=== PATIENT | female | born 1960 | race Caucasian/White ===

== ENCOUNTER → 2018-07-29 | Outpatient (CLI) | payer OTHER ==
--- NOTE | 2018-07-30 15:27 | SLEEP ---
DATE OF STUDY: 07/29/2018 REFERRING PHYSICIAN: Dr. Uma Alvares. PRIMARY CARE PHYSICIAN: THIAGO Wade. The patient is a 57-year-old who weighs 210 pounds with a BMI of 36. The patient underwent a diagnostic sleep study at [facility]. During the night study, the patient spent 417 minutes in bed and slept for 360 minutes with a sleep efficiency of 86%. Sleep latency was 48 minutes with a REM latency of 280 minutes. Overall, sleep architecture showed normal stage 1 sleep, increased stage 2 sleep, normal N3 sleep and reduced REM sleep. During the night study, the patient had 6 apneas and 124 hypopneas. The patient's apneas were all obstructive. The patient's apnea-hypopnea index was 22 per hour with a supine index of 35 per hour, and a REM index of 101 per hour. The patient's sleep apnea was worse during REM sleep. EKG monitoring revealed a mean heart rate of 76 beats per minute, no sustained arrhythmias observed. Nocturnal oximetry study revealed a mean oxygen saturation of 92%, the lowest of 73%. A 78% of time oxygen saturation remained between 80% and 89%. PLMS were seen at index of 27 per hour and 4 per hour caused EEG arousals. Since REM sleep came very late in the night of study, there was not enough time to initiate CPAP. The patient's sleep apnea was worse during REM sleep. IMPRESSION: 1. Moderate sleep apnea-hypopnea syndrome with worsening during REM sleep. Total apnea-hypopnea index of 22 per hour with a REM apnea-hypopnea index of 101 per hour. The patient's sleep apnea was predominantly during REM sleep. 2. Nocturnal hypoxia secondary to obstructive sleep apnea and was worse during REM sleep. 3. Moderate periodic limb movements of sleep. RECOMMENDATIONS: 1. The patient should return to the sleep lab for CPAP titration study. 2. Once optimum CPAP pressure is achieved, then follow up in 4-6 weeks to assess compliance with CPAP and to document clinical improvement. 3. Weight loss is strongly advised. 4. Avoid LO[employer]ING [employer] depressants. 5. Cautioned regarding driving until symptoms of sleep apnea have resolved with the use of CPAP. STELLA LADD MD DR: [place]/bryanna JOB#: [id number] / [id number] UMA Stewart MD
== END | disposition home or self-care (01) ==
LOC: SLPLAB 18:52
PROVIDERS: ATTEND Internal Medicine Pulmonary Disease
DX: G47.33 Obstructive sleep apnea (adult) (pediatric) (principal)
CPT/HCPCS: 95810

== ENCOUNTER → 2018-09-16 | Outpatient (CLI) | payer OTHER ==
--- NOTE | 2018-09-17 19:14 | SLEEP ---
DATE OF STUDY: 09/17/2018 OBJECTIVE: The patient is a 58-year-old female previously studied on 07/29/2018 showing obstructive sleep apnea and hypopnea with an apnea-hypopnea index of 22 events per hour. The patient is returning for a CPAP titration. INTERPRETATION: Sleep architecture is characterized by sleep efficiency of 90% across the 7.5 hours of recording time. Stage volumes are appropriate for age. Sleep onset latency is 6.5 minutes. The patient is started on treatment. The overall apnea-hypopnea index was 54 events per hour of sleep, but on 18 cm of CPAP, the apnea/hypopnea index falls to 1.2 events per hour of sleep. The minimum oxygen saturation is 75%. Periodic limb movements occur at the rate of 5 per hour, 9 per hour associated with arousal. No cardiac arrhythmias are seen. IMPRESSION: Abnormal polysomnogram showing successful treatment of sleep apnea on a CPAP setting of 18 cm using a ResMed full face mask Quattro, small size. RECOMMENDATIONS: 1. The patient should be started on the above CPAP setting. 2. She should avoid sedatives and alcohol and pursue weight loss. Thank you for letting us help with the patient's care. TWILA CARLSON MD DR: [place]/bryanna JOB#: [id number] / [id number] STELLA Anne MD, ANGELA PA
== END | disposition home or self-care (01) ==
LOC: RT 19:01
PROVIDERS: ATTEND Internal Medicine Pulmonary Disease
DX: G47.33 Obstructive sleep apnea (adult) (pediatric) (principal)
CPT/HCPCS: 95811

== ENCOUNTER → 2018-10-09 | Outpatient (CLI) | payer OTHER ==
--- NOTE | 2018-10-09 11:59 | RAD ---
FDG tumor localization scan, PET/CT: HISTORY: Follow-up lung cancer Following IV injection of 14.8 mCi of 18 F-FDG, imaging was performed from the skull base to the proximal thighs. The noncontrast CT component was performed for attenuation correction and anatomic localization purposes rather than for primary diagnosis. The patient's blood glucose level the time of injection was 119 MG/DL. Prior outside imaging is not available at this time for correlative purposes. Physiologic FDG uptake is evident in the neck. No hypermetabolic neck lesion is seen. There is a hypermetabolic nodule in the anterolateral aspect of the right upper lobe. It demonstrates a maximum SUV of 3.3. It is poorly defined on the CT component due to patient motion artifact but appears to measure approximately 16 mm. There is a 13 mm peripheral groundglass opacity in the anterior aspect of the right middle lobe which demonstrates low level FDG uptake. The maximum SUV is 2.1. This is similar to the mediastinal background activity. There appear to be several other small groundglass opacities in the lungs, not well demonstrated on the current CT images due to the motion artifacts. There is no demonstrable abnormal FDG uptake in these regions. Correlation with the patient's outside diagnostic CT study is suggested. No hypermetabolic mediastinal or hilar lesion is seen. Normal GI tract and urinary tract activity is present in the abdomen and pelvis. No hypermetabolic abdominal or pelvic lesion is seen. Incidental CT findings include the presence of a 3.1 cm left adnexal cyst which is likely of ovarian origin. There is no associated avid FDG uptake. There is mild aortoiliac calcific plaquing. IMPRESSION: 1. Mildly hypermetabolic right upper lobe pulmonary nodule raising the possibility of malignancy. 2. Small peripheral groundglass opacity in the right middle lobe demonstrating low level FDG uptake. Lack of avid uptake may may be related to its small size and nonsolid nature. Low-grade malignancy cannot be excluded.
== END | disposition home or self-care (01) ==
LOC: PETSC 09:59
PROVIDERS: ATTEND Internal Medicine Hematology & Oncology
DX: C34.91 Malignant neoplasm of unspecified part of right bronchus or lung (principal); R91.1 Solitary pulmonary nodule; N83.8 Other noninflammatory disorders of ovary, fallopian tube and broad ligament
CPT/HCPCS: 78815; A9552

== ENCOUNTER → 2018-10-20 | Outpatient (CLI) | payer OTHER ==
[~2018-10-20] MED LIST: GADOTERATE 5 MMOL/10ML VIAL. IVP ONE
--- NOTE | 2018-10-20 10:26 | KCIC ---
MRI Brain with and without contrast History: Lung cancer staging Technique: Multiplanar, multi sequential pre and postcontrast MR imaging was performed of the brain. Comparison: None Findings: There is no evidence of recent infarct or cytotoxic edema. The ventricles, sulci, and cisterns are within normal limits in size and configuration. There is no significant midline shift, intraaxial mass effect, or focal abnormal extra-axial fluid collection. There are several scattered tiny foci of nonenhancing T2 and FLAIR hyperintense signal most numerous of the left frontal lobe, to lesser degree of the right frontal and left parietal lobes. There is no significant hemosiderin deposition of the brain parenchyma. There is no nodular parenchymal or leptomeningeal enhancement. There is preservation of the major intracranial flow-voids at the skull base. The cerebellar tonsils are normal in location. There is no significant abnormality of the pineal gland or pituitary gland. There are small mucous retention cysts of the right maxillary and sphenoid sinuses. There is patchy minimal ethmoid air cell mucosal thickening. Frontal sinus is not pneumatized. The mastoid air cells are aerated. There is preserved marrow signal of the clivus. Impression: 1. There is no abnormal intracranial enhancement. 2. Scattered minimal T2 and FLAIR hyperintense abnormality of the supratentorial parenchyma is nonspecific. Findings could be due to chronic microvascular ischemic disease especially if risk factors such as hypertension or diabetes. White matter changes can be seen in patients with migraine headaches if corresponding history. Pattern is not particularly suggestive of an inflammatory demyelinating disease. Electronically signed by: Mor Mullen MD (10/20/2018 10:23 AM) [facility]
== END | disposition home or self-care (01) ==
LOC: KCIC MRI 08:47
PROVIDERS: ATTEND Internal Medicine Hematology & Oncology
DX: C34.91 Malignant neoplasm of unspecified part of right bronchus or lung (principal); J34.1 Cyst and mucocele of nose and nasal sinus; G43.909 Migraine, unspecified, not intractable, without status migrainosus; R90.82 White matter disease, unspecified
CPT/HCPCS: 70553; A9575

== ENCOUNTER → 2018-11-04 | Outpatient (CLI) | payer OTHER ==
[~2018-11-04] MED LIST changes: +ACLI400A2 IH; +ALPR2TAB5 PO; +BENZ100C PO; +BREO ELLIPTA 11 EACH IH; +CITA20TA9 PO; -GADOTERATE 5 MMOL/10ML VIAL. IVP ONE; +LISI-334 PO; +PANT20TA2 PO; +VENTOLIN HFA18 GM INH
--- NOTE | 2018-11-04 12:05 | CARD ---
MR#: [id number] Date of Study: 11/04/2018 Ordering Physician: CLIFTON AQUINO, Referring Physician: CLIFTON AQUINO Tech: Maddi Rodríguez EDGAR APPROVED REPORT EXAM: Two-dimensional and M-mode echocardiogram with Doppler and color Doppler. Other Information Quality : AverageHR: 80bpm Rhythm : NSR INDICATION Breast Cancer 2D DIMENSIONS RVDd3.2 (2.9-3.5cm)Left Atrium(2D)3.2 (1.6-4.0cm) IVSd1.0 (0.7-1.1cm)Aortic Root(2D)2.4 (2.0-3.7cm) LVDd4.7 (3.9-5.9cm)LVOT Diameter1.8 (1.8-2.4cm) PWd0.9 (0.7-1.1cm)LVDs3.3 (2.5-4.0cm) FS (%) 28.9 %SV57.1 ml LVEF(%)55.6 (>50%) Aortic Valve AoV Peak Aleks.169.3cm/sAoV VTI31.2cm AO Peak GR.11.5mmHgLVOT Peak Aleks.129.8cm/s AO Mean GR.5mmHgAVA (VMAX)1.96cm2 CRYSTAL (VTI)2.00cm2 Mitral Valve MV E Syferkuh304.8cm/sMV DECEL [id number] MV A Cjximgfn859.4cm/sE/A Ratio1.2 Pulmonary Valve PV Peak Ktrmptwb009.4cm/s Tricuspid Valve TR P. Oqgpqjxf382hp/sRAP [id number] TR Peak Gr.97dxRrRZGN79tcAa LEFT VENTRICLE The left ventricle is normal size. There is normal left ventricular wall thickness. The left ventricu lar systolic function is normal and the ejection fraction is within normal range. The Ejection Fracti on is 55-60%. There is normal LV segmental wall motion. Transmitral Doppler flow pattern is Grade II- pseudonormal filling dynamics. Global strain normal at -22 RIGHT VENTRICLE The right ventricle is normal size. There is normal right ventricular wall thickness. The right ventr icular systolic function is normal. ATRIA The left atrium size is normal. The right atrium size is normal. The interatrial septum is intact wit h no evidence for an atrial septal defect or patent foramen ovale as noted on 2-D or Doppler imaging. AORTIC VALVE The aortic valve is probably trileaflet. Doppler and Color Flow revealed no significant aortic regurg itation. There is no significant aortic valvular stenosis. MITRAL VALVE Mitral annular calcification is mild. There is no evidence of mitral valve prolapse. There is no mitr al valve stenosis. Doppler and Color-flow revealed trace mitral regurgitation. TRICUSPID VALVE The tricuspid valve is normal in structure and function. Doppler and Color Flow revealed trace tricus pid regurgitation. The PA pressure was estimated at 38 mmHg. There is no tricuspid valve prolapse or vegetation. There is no tricuspid valve stenosis. PULMONIC VALVE The pulmonic valve is not well visualized. GREAT VESSELS The aortic root is normal in size. The ascending aorta is normal in size. The IVC is normal in size a nd collapses >50% with inspiration. PERICARDIAL EFFUSION There is no evidence of significant pericardial effusion. Critical Notification Critical Value: No <Conclusion> The left ventricle is normal size. The left ventricular systolic function is normal and the ejection fraction is within normal range. The Ejection Fraction is 55-60%. There is no significant aortic valvular stenosis. Doppler and Color Flow revealed no significant aortic regurgitation. Doppler and Color-flow revealed trace mitral regurgitation. Doppler and Color Flow revealed trace tricuspid regurgitation. The PA pressure was estimated at 38 mmHg. There is no evidence of significant pericardial effusion. Signed by : Stephen Rosa MD Electronically Approved : 11/04/2018 12:04:31
== END | disposition home or self-care (01) ==
LOC: ECHO 09:09
PROVIDERS: ATTEND Internal Medicine Hematology & Oncology
DX: I05.8 Other rheumatic mitral valve diseases (principal); C34.91 Malignant neoplasm of unspecified part of right bronchus or lung; C50.919 Malignant neoplasm of unspecified site of unspecified female breast
CPT/HCPCS: 93306

== ENCOUNTER → 2019-01-20 | Outpatient (CLI) | payer OTHER ==
[~2019-01-20] MED LIST changes: -ACLI400A2 IH; +ACLI400A3 IH; +BUSP10TA PO
--- NOTE | 2019-01-20 13:06 | RAD ---
PQRS Compliance Statement: One or more of the following individualized dose reduction techniques were utilized for this examination: 1. Automated exposure control 2. Adjustment of the mA and/or kV according to patient size 3. Use of iterative reconstruction technique CT CHEST WO CONTRAST 01/20/2019 12:30 PM Indication: Lung cancer status post treatment; restaging COMPARISON: PET/CT 10/09/2018 TECHNIQUE: Multiple axial CT images of the chest were obtained without intravenous contrast. Coronal and sagittal reformats are provided. FINDINGS: Stable predominantly groundglass nodule with minimal solid component measuring 10 x 7 mm in the right upper lobe (series 3, image 16). Solid noncalcified spiculated pulmonary nodule in the right upper lobe measures 15 x 10 mm, stable (series 3, image 20). Stable groundglass nodule along the right major fissure in the right middle lobe measuring 5 mm (series 3, image 34). There is associated minimal tenting of the fissure. Subpleural groundglass changes are identified in the medial superior lingula which may represent an infectious/inflammatory pneumonitis. No pleural effusions, pulmonary vascular congestion or pneumothorax. No suspicious adrenal nodules. Visualized portions of the upper abdomen appear normal. Mediastinal and cardiac structures are stable. No suspicious osseous abnormality. IMPRESSION: 1. Stable appearance of a dominant spiculated nodule in the right upper lobe measuring 15 x 10 mm. No new or enlarging solid noncalcified pulmonary nodules. 2. New subpleural groundglass changes in the medial superior lingula most favors an infectious/inflammatory pneumonitis. 3 month follow-up chest CT is recommended to ensure resolution. 3. Stable subsolid 10 x 7 mm nodule in the right upper lobe. Attention on follow-up exams is recommended. Stable 5 mm perifissural nodule in the right middle lobe. Electronically signed by: Alma Rosa Johansen MD (01/20/2019 1:03 PM) [facility]
== END | disposition home or self-care (01) ==
LOC: CT 11:45
PROVIDERS: ATTEND Radiology Radiation Oncology
DX: Z08 Encounter for follow-up examination after completed treatment for malignant neoplasm (principal)
CPT/HCPCS: 71250

== ENCOUNTER → 2019-08-28 | Outpatient (CLI) | payer MEDICARE ==
[2019-03-23 10:20] VITALS: BP 157/82
[~2019-08-28] MED LIST changes: +ALPR0.5T6 PO; +BUSP30TA PO; +CITA40TA5 PO; +CYCL10TA2 PO; +NICO1PAT21 TD; +PANT40TA6 PO
--- NOTE | 2019-08-28 18:40 | RAD ---
EXAM: PET W CT SKULL TO MIDTHIGH EXAM DATE: 08/28/2019 INDICATION: Lung cancer RADIOPHARMACEUTICAL: 13.5 mCi of F-18 Fluorodeoxyglucose (FDG) I.V. via the right antecubital fossa. TECHNIQUE: Patient weight: 210 pounds. Following at least four-hour fasting, the patient's blood glucose was 169 mg/dl. Approximately 1 hour after administration of FDG, overlapping emission scanning was performed from the orbital meatal line through the pelvis. A low-dose CT was performed for attenuation correction purposes and anatomic localization. Fused images of PET and CT were reviewed. Any standardized uptake values (SUV) reported are maximum values within a volume region of interest, expressed in gm/ml. COMPARISON: PET CT of 10/09/[address] chest with IV contrast of 08/14/2019. FINDINGS: PET: Right upper lobe spiculated lung nodule shows FDG uptake to max SUV of 3.31. This is unchanged from previously reported FDG uptake of 3.3. Previously reported groundglass opacity in the medial right middle lobe is less well shown on this examination due to respiratory motion artifact. No corresponding FDG uptake in this area. Nodular atelectatic changes in the medial right middle lobe abutting the pleura is new and shows FDG uptake to max SUV of 2.13. No abnormal FDG uptake in the abdomen or pelvis. Mediastinal background uptake is 2.3 Max SUV Hepatic background uptake is 3.[address]: Respiratory motion artifact degrades detail. Spiculated right upper lobe pulmonary nodule is again identified, measuring 1.2 cm on the comparison chest CT of approximately 2 weeks ago. Apart from mild peripheral right middle lobe atelectatic changes that shows mild uptake on the current scan, no significant interval change in the chest is appreciated. No adenopathy or mass is otherwise appreciated. The abdomen and pelvis again show scattered atherosclerotic calcifications and a left adnexal 3.8 cm cystic structure which is enlarged from 2.6 cm on the prior PET/CT. No adenopathy, ascites or peritoneal nodularity. IMPRESSION: Right upper lobe spiculated 1.2 cm lung nodule shows FDG uptake to a max SUV of 3.3, similar activity to the previous PET/CT of slightly under a year ago and remains suspicious for a primary pulmonary malignancy. No additional abnormal sites of uptake suspicious for malignancy or metastatic disease. Uptake in the medial right middle lobe is favored inflammatory and related to atelectatic changes. Electronically signed by: Jace Hernandez MD (08/28/2019 6:37 PM) [id number]
== END ==
LOC: PETSC 07:55
PROVIDERS: ATTEND Internal Medicine Hematology & Oncology
DX: C34.91 Malignant neoplasm of unspecified part of right bronchus or lung (principal); R91.1 Solitary pulmonary nodule
CPT/HCPCS: 78815; A9552

== ENCOUNTER → 2019-11-30 | Outpatient (CLI) | payer MEDICARE ==
[2019-03-23 10:20] VITALS: BP 157/82
[2019-11-30 10:01] LABS: BASO % 0 % (0-3); EOS # 0.2 x10^3/uL (0.0-0.7); EOS % 3 % (0-3); HEMATOCRIT 40.4 % (36.0-47.0); HEMOGLOBIN 13.1 g/dL (12.0-15.5); LYMPH # 1.5 x10^3/uL (1.0-4.8); LYMPH % 29 % (24-48); MEAN CORPUSCULAR HEMOGLOBIN 28 pg (25-35); MEAN CORPUSCULAR HGB CONC 33 g/dL (31-37); MEAN CORPUSCULAR VOLUME 85 fL (79-100); MONO # 0.6 x10^3/uL (0.0-1.1); MONO % 12 % (0-9); NEUT # 2.9 x10^3/uL (1.8-7.7); NEUT % 55 % (31-73); PLATELET COUNT 218 x10^3/uL (140-400); RED BLOOD COUNT 4.77 x10^6/uL (3.50-5.40); WHITE BLOOD COUNT 5.2 x10^3/uL (4.0-11.0)
[2019-11-30 10:09] LABS: CALCIUM 8.3 mg/dL (8.5-10.1); CREATININE 0.7 mg/dL (0.6-1.0); GFR 85.6; POTASSIUM 3.8 mmol/L (3.5-5.1)
[2019-11-30 10:15] LABS: ALBUMIN 3.2 g/dL (3.4-5.0); ALBUMIN/GLOBULIN RATIO 0.9 (1.0-1.7); TOTAL BILIRUBIN 0.8 mg/dL (0.2-1.0); TOTAL PROTEIN 6.7 g/dL (6.4-8.2)
== END | disposition home or self-care (01) ==
LOC: ONCLAB 09:45
PROVIDERS: ATTEND Internal Medicine Hematology & Oncology
DX: C34.11 Malignant neoplasm of upper lobe, right bronchus or lung (principal)
CPT/HCPCS: 36415; 80053; 85025

== ENCOUNTER → 2019-12-15 | Outpatient (CLI) | payer MEDICARE ==
[2019-03-23 10:20] VITALS: BP 157/82
[~2019-12-15] MED LIST changes: +IOHEXOL 300 MG/ML 100ML VIAL. IV ONE
--- NOTE | 2019-12-15 13:26 | RAD ---
EXAM: CT Chest with IV contrast INDICATION: Reason: LUNG ADENOCARCINOMA / Spl. Instructions: IV OMNI 300 75 MLS / History: TECHNIQUE: Multi-detector row CT images were acquired from the thoracic inlet through the upper abdomen with the use of IV contrast. Sagittal and coronal images were acquired from the transaxial data. All CT scans performed at this facility utilize dose optimization techniques as appropriate to the exam, including the following: Automated exposure control and adjustment of the mA and/or KV according to patient size (this includes techniques or standardized protocols for targeted exams where dose is indication/reason for exam). IV CONTRAST: Administered COMPARISON: PET CT of 08/28/2019 and chest CTs with IV contrast of 03/20/2019 and 08/14/2019 FINDINGS: CARDIOVASCULAR: Unremarkable MEDIASTINUM & SHERLEY: No adenopathy or masses. LUNGS: Spiculated right upper lobe peripheral pulmonary nodule shows clear decrease in size from March 2019, marginally smaller since August 2019, currently measuring 1.2 cm wide and 0.7 cm AP by 0.9 cm craniocaudal (axial image 18 is series 2 and coronal image 27 of series 4 this exam), compared with 1.7 x 1.3 x 1.3 cm in March (axial image 43 of series 3 and coronal image 28 of series 5 that exam) and compared with 1.4 x 1.0 x 1.2 cm (images 86 of series 2 and 71 of series 5 on the August 14, 2019 comparison study). Slightly posterior and inferior to that is a subsolid spiculated 9 mm nodule (image 14 of series 2) that is essentially unchanged from the prior two examinations, allowing for variability in measurement. In the far posterior right upper lobe abutting the major fissure, an additional irregular subsolid nodule is barely discernible on this examination, showing decrease in density compared with the prior 2 examinations (image 27 of series 2 this exam compared with images 67 of series 3 on 03/20/2019 and image 143 of series 2 on 08/14/2019). It measures approximately 1.2 cm. Additional subcentimeter ill-defined irregular groundglass opacities may also be present such as in the medial left upper lobe (image 23 of series 2), and in the peripheral, lateral left upper lobe (image 31 of series 2). No new pulmonary nodules. PLEURAL SPACE: No pleural effusions or pneumothorax. OSSEOUS & SOFT TISSUE: Unremarkable ABDOMEN: The visualized portions of the upper abdomen are unremarkable. IMPRESSION: Gradually decreasing in size spiculated right upper lobe peripheral pulmonary nodule and stable subsolid spiculated 9 mm right upper lobe lung nodule with no new lung nodules appreciated. In addition, there is decreasing conspicuity to multiple ill-defined subsolid opacities in the lungs bilaterally, as described in the body of this report. These could represent evolving postinflammatory change. Electronically signed by: Jace Hernandez MD (12/15/2019 1:24 PM) [id number]
== END | disposition home or self-care (01) ==
LOC: CT 10:12
PROVIDERS: ATTEND Internal Medicine Hematology & Oncology
DX: C34.11 Malignant neoplasm of upper lobe, right bronchus or lung (principal); R91.1 Solitary pulmonary nodule
CPT/HCPCS: 71260; Q9967

== ENCOUNTER → 2020-06-09 | Outpatient (CLI) | payer MEDICARE ==
[2019-03-23 10:20] VITALS: BP 157/82
[~2020-06-09] MED LIST changes: +CONTRAST GIVEN. MC PRN; -LISI-334 PO; +LISI20TA18 PO
--- NOTE | 2020-06-10 08:52 | RAD ---
CT scan of the chest with contrast 06/09/2020 CLINICAL HISTORY: Lung cancer. TECHNIQUE: After the intravenous administration of 75 cc of Omnipaque 300, contiguous, 5 mm axial sec tions were obtained through the chest and upper abdomen. One or more of the following individualized dose reduction techniques were utilized for this study: 1. Automated exposure control. 2. Adjustment of the mA and/or kV according to patient size. 3. Use of iterative reconstruction technique. FINDINGS: Comparison study dated 12/15/2019. Mild atherosclerotic calcification is seen scattered throughout the thoracic aorta. The thoracic aort a tapers normally. The heart is normal in size. Small calcified right hilar and mediastinal lymph nod es are seen. No hilar, mediastinal or axillary lymphadenopathy is seen. An irregular masslike opacity is seen involving the right upper lobe which would be consistent with t he patient's history of lung cancer. This measures 1.3 x 0.8 x 0.7 cm in transverse, craniocaudal and AP dimensions. It has decreased in size slightly since the previous study where it measured 1.4 x 1. 0 x 1.0 cm in size. More superiorly within the right upper lobe two additional irregular opacities are seen which measure 1.3-1.2 cm in greatest diameter. They are unchanged. Small groundglass irregular ill-defined opaciti es are seen involving the right upper lobe, the right lower lobe, superiorly, the left upper lobe and the superior aspect of the left lower lobe. These measure 5 to 1.3 cm in size. They are unchanged. No new pulmonary nodule is seen. No area of consolidation is noted. No pneumothorax or pleural effusi on is identified. Images through the upper abdomen demonstrate decreased attenuation liver parenchyma consistent with f atty infiltration. Atherosclerotic calcification abdominal aorta is seen. The abdominal aorta tapers normally. Degenerative changes are seen involving the thoracic spine. IMPRESSION: Slight interval decrease in size of the 1.3 cm masslike opacity involving the right upper lobe consistent with the patient's history of lung cancer. No new pulmonary nodule is seen. Electronically signed by: Ben Reese MD (06/10/2020 8:50 AM) [id number]
== END ==
LOC: CT 12:04
PROVIDERS: ATTEND Internal Medicine Hematology & Oncology
DX: C34.11 Malignant neoplasm of upper lobe, right bronchus or lung (principal); I70.0 Atherosclerosis of aorta; K76.0 Fatty (change of) liver, not elsewhere classified
CPT/HCPCS: 71260; Q9967